=== PATIENT | female | born 1995 | race Hispanic/Latino ===

== ENCOUNTER 2016-11-21 05:53 | Inpatient (IN) | payer OTHER ==
[2016-11-21 06:17] VITALS: BMI 21.9
[2016-11-21] MEDS ORDERED: Sodium Chloride 0.9% 1,000 ML IV STA ×2 (06:17→08:52)
--- NOTE | 2016-11-21 06:29 | ED PDOC ---
HPI: Abdomen Time Seen by Provider: 11/21/16 06:09 Chief Complaint (Nursing): Abdominal Pain Chief Complaint (Provider): Abdominal discomfort History Per: Patient History/Exam Limitations: no limitations Onset/Duration Of Symptoms: Hrs Outside of [place] travel?: No Current Symptoms Are (Timing): Still Present Associated Symptoms: Vomiting, Diarrhea Additional Complaint(s): The patient is a 20yo female, presents to the ED for evaluation of nausea, vomiting, diarrhea since 4AM today. She reports 10 episodes of non-bloody, non- bilious vomiting and 4 episodes of watery, non-bloody diarrhea. She denies any abdominal pain, fever, chills, sick contacts, recent travels. She also denies any recent abdominal surgeries or recent antibiotics use. She offers no other medical complaints. Past Medical History Reviewed: Historical Data, Nursing Documentation, Vital Signs Vital Signs: Last Vital Signs Temp 97.7 F 11/21/16 06:20 Pulse 116 H 11/21/16 06:20 Resp 19 11/21/16 06:20 BP 144/67 11/21/16 06:20 Pulse Ox 100 11/21/16 06:41 - Medical History PMH: No Chronic Diseases - Surgical History Surgical History: No Surg Hx - Family History Family History: States: No Known Family Hx - Living Arrangements Living Arrangements: With Family - Social History Current smoker - smoking cessation education provided: No Ex-Smoker (has not smoked in the last 12 months): No Alcohol: None Drugs: Denies - Allergies Allergies/Adverse Reactions: Allergies Allergy/AdvReac Type Severity Reaction Status Date / Time Penicillins AdvReac VOMITING Verified 11/21/16 06:26 Review of Systems ROS Statement: Except As Marked, All Systems Reviewed And Found Negative Constitutional: Negative for: Fever, Chills Gastrointestinal: Positive for: Nausea, Vomiting, Diarrhea. Negative for: Abdominal Pain Physical Exam - Reviewed Nursing Documentation Reviewed: Yes Vital Signs Reviewed: Yes - Physical Exam Appears: Positive for: Non-toxic (patient actively retching upon examination) Head Exam: Positive for: ATRAUMATIC, NORMAL INSPECTION, NORMOCEPHALIC Skin: Positive for: Warm, Dry Eye Exam: Positive for: Normal appearance Neck: Positive for: Supple Cardiovascular/Chest: Positive for: Regular Rate, Rhythm Respiratory: Positive for: Normal Breath Sounds. Negative for: Respiratory Distress Gastrointestinal/Abdominal: Positive for: Soft. Negative for: Tenderness Neurologic/Psych: Positive for: Alert, Oriented. Negative for: Motor/Sensory Deficits - ECG O2 Sat by Pulse Oximetry: 100 (RA) Pulse Ox Interpretation: Normal Medical Decision Making Medical Decision Making: Time: 616 Impression: Gastroenteritis Plan: -- Labs -- Zofran 4g IV -- IV Fluids Reassess Time: 699 Patient to be signed out to Dr. Moreira pending labs and re-evaluation. Scribe Attestation: Documented by Prema Pinto acting as a scribe for Sarmad Galan MD. Provider Attestation: All medical record entries made by the Scribe were at my direction and personally dictated by me. I have reviewed the chart and agree that the record accurately reflects my personal performance of the history, physical exam, medical decision making, and the department course for this patient. I have also personally directed, reviewed, and agree with the discharge instructions and disposition. Disposition - Clinical Impression Clinical Impression: Gastroenteritis - Patient ED Disposition Is Patient to be Admitted: Transfer of Care - Disposition Disposition: Transfer of Care Disposition Time: 07:00 Condition: STABLE Forms: [employer] ([employer]) Patient Signed Over To: Jordyn Moreira Handoff Comments: pending labs, re-eval
--- NOTE | 2016-11-21 06:57 | ED PDOC ---
- Laboratory Results Result Diagrams: 11/22/16 05:10 11/22/16 05:10 - ECG O2 Sat by Pulse Oximetry: 100 (RA) - Progress Condition: Improving,but remains with symptoms Medical Decision Making Medical Decision Makin -Patient transferred to [place] by Dr. Galan. Pending labs and reevaluation 0920 -Patient feels better. Abdomen is nontender. 1100 -Patient feels better. Tolerated PO Disposition - Clinical Impression Clinical Impression: Gastroenteritis - POA Present On Arrival: None - Disposition Disposition: Hospitalized as Observation Patient Disposition Time: 11:48 Condition: STABLE ED OBSERVATION Date of observation admission: 11/21/16 Time of observation admission: 07:00 - Observation admission statement Patient is placed on observation because of need: for resolution of acute symptoms - Goals of Observation Goals of Observation: Resolution of symptoms - Progress Note Time:: 10:00 Observation Progress Note: Patient is awake,vitals are stable and symptoms are improved Progress Note: 11/21/16 11:09 Patient is awake, vitals are stable. Symptoms are improving. 11/21/16 12:26 Patient is awake, vitals are stable. Symptoms are improving.
[2016-11-21 07:04] LABS: BASO % 0.1 % (0.0-2.0); EOS % 0.2 % (0.0-4.0); HEMATOCRIT 48.1 % (34.0-47.0); LYMPH # 1.1 K/uL (1.0-4.3); LYMPH % 7.4 % (20.0-40.0); MEAN CELL VOLUME 89.2 fl (81.0-99.0); MEAN CORPUSCULAR HEMOGLOBIN 30.7 pg (27.0-31.0); MEAN CORPUSCULAR HGB CONC 34.4 g/dL (33.0-37.0); MONO # 0.3 K/uL (0.0-0.8); MONO % 2.2 % (0.0-10.0); NEUT # 13.8 K/uL (1.8-7.0); NEUT % 90.1 % (50.0-75.0); NRBC % 0.9 % (0.0-0.0); PLATELET COUNT 293 K/uL (130-400); RED CELL DISTRIBUTION WIDTH 13.1 % (11.5-14.5); WHITE BLOOD COUNT 15.3 K/uL (4.8-10.8)
[2016-11-21 07:20] LABS: ALB/GLOB RATIO 1.2 (1.0-2.1); ALKALINE PHOSPHATASE 109 U/L (38-126); ALT/SGPT 35 U/L (9-52); AST/SGOT 33 U/L (14-36); BILIRUBIN,TOTAL 0.8 mg/dl (0.2-1.3); BLOOD UREA NITROGEN 16 mg/dl (7-17); CALCIUM 10.2 mg/dL (8.4-10.2); CARBON DIOXIDE 23 mmol/L (22-30); CHLORIDE 102 mmol/L (98-107); GFR AFRICAN-AMERICAN > 60; GLUCOSE,RANDOM 115 mg/dL (65-105); LIPASE 62 U/L (23-300); POTASSIUM 4.3 MMOL/L (3.6-5.0); SODIUM 142 mmol/l (132-148); TOTAL PROTEIN 8.4 G/DL (6.3-8.2)
[2016-11-21 08:43] LABS: VENOUS BLOOD GAS BASE EXCESS 3.2 mmol/L (0.0-2.0); VENOUS BLOOD GAS PCO2 31 mmHg (40-60); VENOUS BLOOD PH 7.52 (7.32-7.43)
[2016-11-21 08:48] LABS: RBC URINE 5 /hpf (0-3); URINE BACTERIA RARE (<OCC); URINE BILIRUBIN NEGATIVE (NEGATIVE); URINE BLOOD LARGE (NEGATIVE); URINE COLOR YELLOW (YELLOW); URINE GLUCOSE (UA) NEG (Normal); URINE KETONE NEGATIVE (NEGATIVE); URINE LEUKOCYTE ESTERASE MOD Leu/uL (Negative); URINE PROTEIN 30 mg/dL (NEGATIVE); URINE UROBILINOGEN 0.2-1.0 mg/dL (0.2-1.0); WBC URINE 30 /hpf (0-5)
[2016-11-21 09:10] LABS: BASOPHIL 1 % (0-2); NEUTROPHIL 86 % (42-75); TOTAL CELLS COUNTED 100
[2016-11-21] MEDS ORDERED: Ciprofloxacin 400mg/200ml D5W 400 MG/200 ML BAG IVPB ONE ×2 (12:00→12:36)
[2016-11-21] MEDS ORDERED: Sodium Chloride 0.9% 1,000 ML IV SCH (14:15)
[2016-11-21] MEDS ORDERED: metroNIDAZOLE 500mg/100ml NS IVPB SCH (17:00)
[2016-11-21] MEDS: Sodium Chloride 0.9% 1,000 ML IV SCH (17:03)
[2016-11-21] MEDS ORDERED: Ciprofloxacin 400mg/200ml D5W 400 MG/200 ML BAG IVPB SCH (21:00)
--- NOTE | 2016-11-21 22:48 | CP.PCM.HP ---
History of Present Illness - History of Present Illness History of Present Illness: A 20 year old female came for nausea, vomiting, diarrhea since 4 AM this morning. She had 10 episodes of non-bilous vomiting She denied abdominal pain or fever or chills or dysuria. She has been healthy and was not taking any medicines at home. Present on Admission - Present on Admission Any Indicators Present on Admission: No History of DVT/PE: No History of Uncontrolled Diabetes: No Urinary Catheter: No Decubitus Ulcer Present: No Review of Systems - Cardiovascular Cardiovascular: absent: Chest Pain - Respiratory Respiratory: absent: Cough - Gastrointestinal Gastrointestinal: Nausea, Vomiting. absent: Abdominal Pain Past Patient History - Past Medical History & Family History Past Medical History?: Yes - Past Social History Smoking Status: Never Smoked - CARDIAC Hx Cardiac Disorders: No - PULMONARY Hx Respiratory Disorders: No - NEUROLOGICAL Hx Neurological Disorder: No - HEENT Hx HEENT Problems: No - RENAL Hx Chronic Kidney Disease: No - ENDOCRINE/METABOLIC Hx Endocrine Disorders: No - HEMATOLOGICAL/ONCOLOGICAL Hx Blood Disorders: No Hx AIDS: No Hx Human Immunodeficiency Virus (HIV): No - INTEGUMENTARY Hx Dermatological Problems: No - MUSCULOSKELETAL/RHEUMATOLOGICAL Hx Musculoskeletal Disorders: No Hx Falls: No - GASTROINTESTINAL Hx Gastrointestinal Disorders: Yes Other/Comment: 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 hospitalized once at age 1 for dehyration , vomiting - GENITOURINARY/GYNECOLOGICAL Hx Genitourinary Disorders: No - PSYCHIATRIC Hx Psychophysiologic Disorder: No Hx Substance Use: No - SURGICAL HISTORY Hx Surgeries: No - ANESTHESIA Hx Anesthesia: No Meds Home Medications: Home Medication List Medication Instructions Recorded Confirmed Type Ondansetron [Zofran Odt] 4 mg PO Q8H PRN #15 odt 11/21/16 Rx Allergies/Adverse Reactions: Allergies Allergy/AdvReac Type Severity Reaction Status Date / Time Penicillins AdvReac VOMITING Verified 11/21/16 06:26 Physical Exam - Constitutional Appears: Non-toxic, No Acute Distress - Neck Exam Neck exam: Positive for: Full Rom - Respiratory Exam Respiratory Exam: Clear to Auscultation Bilateral, NORMAL BREATHING PATTERN - Cardiovascular Exam Cardiovascular Exam: Tachycardia, REGULAR RHYTHM. absent: Systolic Murmur - GI/Abdominal Exam GI & Abdominal Exam: Normal Bowel Sounds, Soft. absent: Tenderness Results - Vital Signs Recent Vital Signs: Last Vital Signs Temp 102.8 F H 11/21/16 21:30 Pulse 101 H 10/05/17 21:30 Resp 22 11/21/16 21:30 BP 146/72 11/21/16 21:30 Pulse Ox 100 11/21/16 21:30 - Labs Result Diagrams: 11/22/16 05:10 11/22/16 05:10 Labs: Laboratory Results - last 24 hr 11/21/16 11/21/16 11/21/16 06:45 06:45 06:45 WBC 15.3 H RBC 5.39 H Hgb 16.6 H Hct 48.1 H MCV 89.2 MCH 30.7 MCHC 34.4 RDW 13.1 Plt Count 293 MPV 7.0 L Neut % (Auto) 90.1 H Lymph % (Auto) 7.4 L [place] % (Auto) 2.2 Eos % (Auto) 0.2 Baso % (Auto) 0.1 Neut # 13.8 H Lymph # 1.1 [place] # 0.3 Eos # 0.0 Baso # 0.0 Neutrophils % (Manual) 86 H Band Neutrophils % 3 H Lymphocytes % (Manual) 7 L Monocytes % (Manual) 3 Basophils % (Manual) 1 Toxic Granulation Present Platelet Estimate Normal RBC Morphology Normal pO2 VBG pH VBG pCO2 VBG HCO3 VBG Total CO2 VBG O2 Sat (Calc) VBG Base Excess VBG Potassium A-a O2 Difference Glucose Lactate FiO2 Blood Gas Comments Crit Value Called To Crit Value Called By Crit Value Read Back Blood Gas Notified Time Sodium 142 Potassium 4.3 Chloride 102 Carbon Dioxide 23 Anion Gap 21 H BUN 16 Creatinine 1.0 Est GFR ( Amer) > 60 Est GFR (Non-Af Amer) > 60 Random Glucose 115 H Lactic Acid 4.6 H* Calcium 10.2 Total Bilirubin 0.8 AST 33 ALT 35 Alkaline Phosphatase 109 Total Protein 8.4 H Albumin 4.7 Globulin 3.8 Albumin/Globulin Ratio 1.2 Lipase 62 Venous Blood Potassium Urine Color Urine Clarity Urine pH Ur Specific [place] Urine Protein Urine Glucose (UA) Urine Ketones Urine Blood Urine Nitrate Urine Bilirubin Urine Urobilinogen Ur Leukocyte Esterase Urine RBC (Auto) Urine Microscopic WBC Ur Squamous Epith Cells Urine Bacteria 11/21/16 11/21/16 07:48 08:27 WBC RBC Hgb Hct MCV MCH MCHC RDW Plt Count MPV Neut % (Auto) Lymph % (Auto) [place] % (Auto) Eos % (Auto) Baso % (Auto) Neut # Lymph # [place] # Eos # Baso # Neutrophils % (Manual) Band Neutrophils % Lymphocytes % (Manual) Monocytes % (Manual) Basophils % (Manual) Toxic Granulation Platelet Estimate RBC Morphology pO2 13 L VBG pH 7.52 H VBG pCO2 31 L VBG HCO3 24.9 VBG Total CO2 26.3 VBG O2 Sat (Calc) 19.9 L VBG Base Excess 3.2 H VBG Potassium 4.2 A-a O2 Difference 98.0 Glucose 99 Lactate 2.8 H FiO2 21.0 Blood Gas Comments Vbg Crit Value Called To Dr jose luis lobo Crit Value Called By 15 Crit Value Read Back Y Blood Gas Notified Time 824 Sodium 138.0 Potassium Chloride 105.0 Carbon Dioxide Anion Gap BUN Creatinine Est GFR ( Amer) Est GFR (Non-Af Amer) Random Glucose Lactic Acid Calcium Total Bilirubin AST ALT Alkaline Phosphatase Total Protein Albumin Globulin Albumin/Globulin Ratio Lipase Venous Blood Potassium 4.2 Urine Color Yellow Urine Clarity Cloudy Urine pH 6.0 Ur Specific [place] 1.023 Urine Protein 30 Urine Glucose (UA) Neg Urine Ketones Negative Urine Blood Large Urine Nitrate Negative Urine Bilirubin Negative Urine Urobilinogen 0.2-1.0 Ur Leukocyte Esterase Mod Urine RBC (Auto) 5 H Urine Microscopic WBC 30 H Ur Squamous Epith Cells 13 H Urine Bacteria Rare Assessment & Plan - Assessment and Plan (Free Text) Assessment: Acute gastroenteritis Plan: iv fluid stool culture study broad spectrum iv antibiotics - Date & Time Date: 11/21/16 Time: 22:49
[2016-11-22] MEDS: Ciprofloxacin 400mg/200ml D5W 400 MG/200 ML BAG IVPB SCH ×2 (00:01→12:13)
[2016-11-22 00:38] VITALS: RESP 20
[2016-11-22 05:56] LABS: ALB/GLOB RATIO 1.2 (1.0-2.1); ALKALINE PHOSPHATASE 58 U/L (38-126); ALT/SGPT 31 U/L (9-52); AST/SGOT 27 U/L (14-36); BILIRUBIN,TOTAL 0.8 mg/dl (0.2-1.3); BLOOD UREA NITROGEN 10 mg/dl (7-17); CALCIUM 8.7 mg/dL (8.4-10.2); CARBON DIOXIDE 20 mmol/L (22-30); CHLORIDE 107 mmol/L (98-107); GFR AFRICAN-AMERICAN > 60; GLUCOSE,RANDOM 92 mg/dL (65-105); POTASSIUM 3.7 MMOL/L (3.6-5.0); SODIUM 139 mmol/l (132-148); TOTAL PROTEIN 6.2 G/DL (6.3-8.2)
[2016-11-22 05:57] LABS: BASO % 0.1 % (0.0-2.0); HEMATOCRIT 37.9 % (34.0-47.0); LYMPH # 0.8 K/uL (1.0-4.3); LYMPH % 9.3 % (20.0-40.0); MEAN CORPUSCULAR HEMOGLOBIN 31.1 pg (27.0-31.0); MEAN CORPUSCULAR HGB CONC 34.6 g/dL (33.0-37.0); MEAN PLATELET VOLUME 7.3 fl (7.2-11.7); MONO # 0.4 K/uL (0.0-0.8); MONO % 4.6 % (0.0-10.0); NEUT # 7.8 K/uL (1.8-7.0); RED CELL DISTRIBUTION WIDTH 12.7 % (11.5-14.5)
[2016-11-22 06:26] LABS: THYROID STIMULATING HORMONE 0.61 mIU/ML (0.46-4.68)
--- NOTE | 2016-11-22 08:22 | CP.PCM.PN ---
Subjective - Date & Time of Evaluation Date of Evaluation: 11/22/16 Time of Evaluation: 08:20 - Subjective Subjective: much better for fever last night temperature went up to 103 no dysuria Objective - Vital Signs/Intake and Output Vital Signs (last 24 hours): Temp Pulse Resp BP Pulse Ox 98.8 F 88 20 119/69 98 11/22/16 05:00 11/22/16 05:00 11/22/16 05:00 11/22/16 05:00 11/22/16 05:00 - Medications Medications: Current Medications Acetaminophen (Tylenol 325mg Tab) 650 mg PO Q6 PRN PRN Reason: Pain, Mild (1-3) Last Admin: 11/21/16 15:40 Dose: 650 mg Acetaminophen (Tylenol 325mg Tab) 650 mg PO Q4 PRN PRN Reason: Fever >100.4 F Last Admin: 11/21/16 20:38 Dose: 650 mg Sodium Chloride (Sodium Chloride 0.9%) 1,000 mls @ 80 mls/hr IV .[id number] [facility] Last Admin: 11/21/16 12:35 Dose: 80 mls/hr Sodium Chloride (Sodium Chloride 0.9%) 1,000 mls @ 80 mls/hr IV .[id number] [facility] Stop: 11/22/16 15:09 Last Admin: 11/21/16 17:03 Dose: 80 mls/hr Ciprofloxacin (Cipro 400mg/200ml Dsw) 400 mg in 200 mls @ 200 mls/hr IVPB Q12@ 0000,1200 [facility] Last Admin: 11/22/16 00:01 Dose: 200 mls/hr Metronidazole (Flagyl) 500 mg PO Q8 [facility] Last Admin: 11/22/16 00:04 Dose: 500 mg Ondansetron HCl (Zofran Inj) 4 mg IVP Q6 PRN PRN Reason: Nausea/Vomiting Last Admin: 11/21/16 21:06 Dose: 4 mg Pantoprazole Sodium (Protonix Inj) 40 mg IVP DAILY [facility] - Labs Labs: 11/22/16 05:10 11/22/16 05:10 - Constitutional Appears: No Acute Distress - Respiratory Exam Respiratory Exam: Clear to Ausculation Bilateral, NORMAL BREATHING PATTERN - Cardiovascular Exam Cardiovascular Exam: REGULAR RHYTHM. absent: Murmur - GI/Abdominal Exam GI & Abdominal Exam: Normal Bowel Sounds Assessment and Plan - Assessment and Plan (Free Text) Assessment: a 20 year old female who came with diarrhea, N/V acute gastroenteritis Plan: check stool culture continue iv cipro, po flagyl ID and GI consult requested
[2016-11-22 08:53] VITALS: O2SAT 100
[2016-11-22] MEDS: Sodium Chloride 0.9% 1,000 ML IV SCH (09:43)
[2016-11-22] MEDS ORDERED: Iohexol 240 (50 ml) PO ONE (12:22)
--- NOTE | 2016-11-22 12:34 | CP.PCM.PN ---
Subjective - Date & Time of Evaluation Date of Evaluation: 11/22/16 Time of Evaluation: 12:15 - Subjective Subjective: no pain, diarrhea improving Objective - Vital Signs/Intake and Output Vital Signs (last 24 hours): Temp Pulse Resp BP Pulse Ox 98.7 F 80 20 119/76 100 11/22/16 11:59 11/22/16 11:59 11/22/16 11:59 11/22/16 11:59 11/22/16 11:59 - Medications Medications: Current Medications Acetaminophen (Tylenol 325mg Tab) 650 mg PO Q6 PRN PRN Reason: Pain, Mild (1-3) Last Admin: 11/21/16 15:40 Dose: 650 mg Acetaminophen (Tylenol 325mg Tab) 650 mg PO Q4 PRN PRN Reason: Fever >100.4 F Last Admin: 11/21/16 20:38 Dose: 650 mg Sodium Chloride (Sodium Chloride 0.9%) 1,000 mls @ 80 mls/hr IV .[id number] [facility] Last Admin: 11/21/16 12:35 Dose: 80 mls/hr Sodium Chloride (Sodium Chloride 0.9%) 1,000 mls @ 80 mls/hr IV .[id number] [facility] Stop: 11/22/16 15:09 Last Admin: 11/22/16 09:43 Dose: 80 mls/hr Ciprofloxacin (Cipro 400mg/200ml Dsw) 400 mg in 200 mls @ 200 mls/hr IVPB Q12@ 0000,1200 [facility] Last Admin: 11/22/16 12:13 Dose: 200 mls/hr Metronidazole (Flagyl) 500 mg PO Q8 [facility] Last Admin: 11/22/16 09:42 Dose: 500 mg Ondansetron HCl (Zofran Inj) 4 mg IVP Q6 PRN PRN Reason: Nausea/Vomiting Last Admin: 11/21/16 21:06 Dose: 4 mg Pantoprazole Sodium (Protonix Inj) 40 mg IVP DAILY [facility] Last Admin: 11/22/16 09:42 Dose: 40 mg - Labs Labs: 11/22/16 05:10 11/22/16 05:10 - Head Exam Head Exam: NORMAL INSPECTION, NORMOCEPHALIC - Eye Exam Eye Exam: Normal appearance - Neck Exam Neck Exam: Normal Inspection - Respiratory Exam Respiratory Exam: Clear to Ausculation Bilateral, NORMAL BREATHING PATTERN - Cardiovascular Exam Cardiovascular Exam: REGULAR RHYTHM - GI/Abdominal Exam GI & Abdominal Exam: Soft, Normal Bowel Sounds Assessment and Plan - Assessment and Plan (Free Text) Assessment: 20 yo female with gastroenteritis family history of IBD given recency of fever, consider CT abd/pelvis
--- NOTE | 2016-11-22 13:57 | CP.PCM.CON ---
History of Present Illness - History of Present Illness History of Present Illness: 20yo female, presents to the ED for evaluation of nausea, vomiting, diarrhea since 4AM today. She reports 10 episodes of non-bloody, non-bilious vomiting and 4 episodes of watery, non-bloody diarrhea. She denies any abdominal pain, fever, chills, sick contacts, recent travels. She also denies any recent abdominal surgeries or recent antibiotics use. She offers no other medical complaints. Review of Systems - Constitutional Constitutional: Chills, Fever, Malaise - EENT Eyes: absent: As Per HPI, Blind Spots, Blurred Vision, Change in Vision, Decreased Night Vision, Diplopia, Discharge, Dry Eye, Exophthalmos, Floaters, Irritation, Itchy Eyes, Loss of Peripheral Vision, Pain, Photophobia, Requires Corrective Lenses, Sees Flashes, Spots in Vision, Tunnel Vision, Other Visual Disturbances, Loss of Vision, Other Ears: absent: As Per HPI, Decreased Hearing, Ear Discharge, Ear Pain, Tinnitus, Abnormal Hearing, Disequilibrium, Dizziness, Other Nose/Mouth/Throat: absent: As Per HPI, Epistaxis, Nasal Congestion, Nasal Discharge, Nasal Obstruction, Nasal Trauma, Nose Pain, Post Nasal Drip, Sinus Pain, Sinus Pressure, Bleeding Gums, Change in Voice, Dental Pain, Dry Mouth, Dysphagia, Halitosis, Hoarsness, Lip Swelling, Mouth Lesions, Mouth Pain, Odynophagia, Sore Throat, Throat Swelling, Tongue Swelling, Facial Pain, Neck Pain, Neck Mass, Other - Breasts Breasts: absent: As Per HPI, Change in Shape, Mass, Pain, Nipple Discharge, Nipple Inversion, Skin Changes, Swelling, Other - Cardiovascular Cardiovascular: absent: As Per HPI, Acrocyanosis, Chest Pain, Chest Pain at Rest , Chest Pain with Activity, Claudication, Diaphoresis, Dyspnea, Dyspnea on Exertion, Edema, Irregular Heart Rhythm, Pain Radiating to Arm/Neck/Jaw, Leg Edema, Leg Ulcers, Lightheadedness, Orthopnea, Palpitations, Paroxysmal Nocturnal Dyspnea, Pedal Edema, Radiating Pain, Rapid Heart Rate, Slow Heart Rate, Syncope, Other - Respiratory Respiratory: absent: As Per HPI, Cough, Dyspnea, Hemoptysis, Dyspnea on Exertion , Wheezing, Snoring, Stridor, Pain on Inspiration, Chest Congestion, Excessive Mucous Production, Change in Mucous Color, Pain with Coughing, Other - Gastrointestinal Gastrointestinal: Diarrhea, Vomiting - Genitourinary Genitourinary: absent: As Per HPI, Change in Urinary Stream, Difficulty Urinating, Dysuria, Flank Pain, Hematuria, Pyuria, Nocturia, Urinary Incontinence, Urinary Frequency, Urinary Hesitance, Urinary Urgency, Voiding Freq/Small Amts, Freq UTI, Hx Renal/Bladder Calculi, Hx /Renal Surgery, Bladder Distension, Other - Reproductive: Female Reproductive:Female: absent: As Per HPI, Amenorrhea, Amenorrhea/ Control, Currently Menstual, Cycle <21 Days, Cycle >35 Days, Cycle Variable, Menses 1-7 Days, Menses >/= 8 Days, Menses Variable, Cycle > 4 Weeks Between, No Menses for 6 Months, Heavy Menses, Light Menses, Normal Menses, Spotting Between Cycles , S/P Hysterectomy, Menopausal, Post Menopausal, Premenarche, Abnormal Vaginal Bleeding, Dysmenorrhea, Dyspareunia, Genital Lesions, Genital Pruritis, Pelvic Pain, Prolapse Symptoms, Sexual Dysfunction, Vaginal Discharge, Vaginal Dryness , Vaginal Odor, Vaginal Pruritis, Other - Menstruation Menstruation: absent: As Per HPI, Amenorrhea, Amenorrhea/ Control, Currently Menstual, Cycle <21 Days, Cycle >35 Days, Cycle Variable, Menses 1-7 Days, Menses >/= 8 Days, Menses Variable, Cycle > 4 Weeks Between, No Menses for 6 Months, Heavy Menses, Light Menses, Normal Menses, Spotting Between Cycles , S/P Hysterectomy, Menopausal, Post Menopausal, Premenarche, Abnormal Vaginal Bleeding, Dysmenorrhea, Other - Musculoskeletal Musculoskeletal: absent: As Per HPI, Abnormal Gait, Arthralgias, Atrophy, Back Pain, Deformity, Joint Swelling, Limited Range of Motion, Loss of Height, Muscle Cramps, Muscle Weakness, Myalgias, Neck Pain, Numbness, Radiating Pain into Limb, Stiffness, Tingling, Other - Integumentary Integumentary: absent: As Per HPI, Acne, Alopecia, Bleeding Lesions, Change in Hair, Change in Nails, Change in Pigmentation, Changing Lesions, Dry Skin, Erythema, Furuncle, Hirsutism, Lesions, New Lesions, Non-Healing Lesions, Photosensitivity, Pruritus, Rash, Skin Pain, Skin Ulcer, Sores, Striae, Swelling , Unusual Bruising, Wounds, Jaundice, Other - Neurological Neurological: absent: As Per HPI, Abnormal Gait, Abnormal Hearing, Abnormal Movements, Abnormal Speech, Behavioral Changes, Burning Sensations, Confusion, Convulsions, Disequilibrium, Dizziness, Numbness, Focal Weakness, Frequent Falls , Headaches, Lack of Coordination, Loss of Vision, Memory Loss, Paresthesias, Radicular Pain, Restless Legs, Sensory Deficit, Syncope, Tingling, Tremor, Vertigo, Weakness, Other Visual Disturbances, Other - Psychiatric Psychiatric: absent: As Per HPI, Abnormal Sleep Pattern, Anhedonia, Anxiety, Auditory Hallucinations, Behavioral Changes, Change in Appetite, Change in Libido, Confusion, Depression, Difficulty Concentrating, Hallucinations, Homicidal Ideation, Hopelessness, Irritability, Memory Loss, Mood Swings, Panic Attacks, Paranoia, Suicidal Ideation, Visual Hallucinations, Tactile Hallucinations, Other - Endocrine Endocrine: absent: As Per HPI, Change in Body Appearance, Change in Libido, Cold Intolorance, Deepening of Voice, Excessive Sweating, Fatigue, Flushing, Heat Intolorance, Increase in Ring/Shoe/Hat Size, Palpitations, Polydipsia, Polyphagia, Polyuria, Other - Hematologic/Lymphatic Hematologic: absent: As Per HPI, Easy Bleeding, Easy Bruising, Lymphadenopathy, Other Past Patient History - Past Medical History & Family History Past Medical History?: Yes - Past Social History Smoking Status: Never Smoked - CARDIAC Hx Cardiac Disorders: No - PULMONARY Hx Respiratory Disorders: No - NEUROLOGICAL Hx Neurological Disorder: No - HEENT Hx HEENT Problems: No - RENAL Hx Chronic Kidney Disease: No - ENDOCRINE/METABOLIC Hx Endocrine Disorders: No - HEMATOLOGICAL/ONCOLOGICAL Hx Blood Disorders: No Hx AIDS: No Hx Human Immunodeficiency Virus (HIV): No - INTEGUMENTARY Hx Dermatological Problems: No - MUSCULOSKELETAL/RHEUMATOLOGICAL Hx Musculoskeletal Disorders: No Hx Falls: No - GASTROINTESTINAL Hx Gastrointestinal Disorders: Yes Other/Comment: 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 hospitalized once at age 1 for dehyration , vomiting - GENITOURINARY/GYNECOLOGICAL Hx Genitourinary Disorders: No - PSYCHIATRIC Hx Psychophysiologic Disorder: No Hx Substance Use: No - SURGICAL HISTORY Hx Surgeries: No - ANESTHESIA Hx Anesthesia: No Meds Home Medications: Home Medication List Medication Instructions Recorded Confirmed Type Ondansetron [Zofran Odt] 4 mg PO Q8H PRN #15 odt 11/21/16 Rx Allergies/Adverse Reactions: Allergies Allergy/AdvReac Type Severity Reaction Status Date / Time Penicillins AdvReac VOMITING Verified 11/21/16 06:26 - Medications Medications: Current Medications Acetaminophen (Tylenol 325mg Tab) 650 mg PO Q6 PRN PRN Reason: Pain, Mild (1-3) Last Admin: 11/21/16 15:40 Dose: 650 mg Acetaminophen (Tylenol 325mg Tab) 650 mg PO Q4 PRN PRN Reason: Fever >100.4 F Last Admin: 11/21/16 20:38 Dose: 650 mg Sodium Chloride (Sodium Chloride 0.9%) 1,000 mls @ 80 mls/hr IV .[id number] [facility] Last Admin: 11/21/16 12:35 Dose: 80 mls/hr Sodium Chloride (Sodium Chloride 0.9%) 1,000 mls @ 80 mls/hr IV .[id number] [facility] Stop: 11/22/16 15:09 Last Admin: 11/22/16 09:43 Dose: 80 mls/hr Ciprofloxacin (Cipro 400mg/200ml Dsw) 400 mg in 200 mls @ 200 mls/hr IVPB Q12@ 0000,1200 [facility] Last Admin: 11/22/16 12:13 Dose: 200 mls/hr Metronidazole (Flagyl) 500 mg PO Q8 [facility] Last Admin: 11/22/16 09:42 Dose: 500 mg Ondansetron HCl (Zofran Inj) 4 mg IVP Q6 PRN PRN Reason: Nausea/Vomiting Last Admin: 11/21/16 21:06 Dose: 4 mg Pantoprazole Sodium (Protonix Inj) 40 mg IVP DAILY [facility] Last Admin: 11/22/16 09:42 Dose: 40 mg Physical Exam - Constitutional Appears: Non-toxic, No Acute Distress - Head Exam Head Exam: ATRAUMATIC, NORMAL INSPECTION, NORMOCEPHALIC - Eye Exam Eye Exam: EOMI, PERRL. absent: Scleral icterus - ENT Exam ENT Exam: Mucous Membranes Dry, Normal External Ear Exam - Neck Exam Neck exam: Negative for: Lymphadenopathy, Thyromegaly - Respiratory Exam Respiratory Exam: Decreased Breath Sounds, Clear to Auscultation Bilateral - Cardiovascular Exam Cardiovascular Exam: REGULAR RHYTHM, +S1, +S2 - GI/Abdominal Exam GI & Abdominal Exam: Diminished Bowel Sounds, Distended, Soft. absent: Tenderness - Rectal Exam Rectal Exam: Deferred - Exam Exam: NORMAL INSPECTION - Extremities Exam Extremities exam: Positive for: pedal pulses present. Negative for: calf tenderness, pedal edema, tenderness - Back Exam Back exam: absent: CVA tenderness (L), CVA tenderness (R) - Neurological Exam Neurological exam: Alert, CN II-XII Intact, Oriented x3, Reflexes Normal - Psychiatric Exam Psychiatric exam: Normal Mood - Skin Skin Exam: Dry, Intact Results - Vital Signs Recent Vital Signs: Last Vital Signs Temp 98.7 F 11/22/16 11:59 Pulse 80 11/22/16 11:59 Resp 20 11/22/16 11:59 BP 119/76 11/22/16 11:59 Pulse Ox 100 11/22/16 11:59 - Labs Result Diagrams: 11/22/16 05:10 11/22/16 05:10 Labs: Laboratory Results - last 24 hr 11/22/16 11/22/16 11/22/16 05:10 05:10 08:51 WBC 9.0 RBC 4.21 Hgb 13.1 D Hct 37.9 MCV 90.0 MCH 31.1 H MCHC 34.6 RDW 12.7 Plt Count 178 D MPV 7.3 Neut % (Auto) 86.0 H Lymph % (Auto) 9.3 L [place] % (Auto) 4.6 Eos % (Auto) 0.0 Baso % (Auto) 0.1 Neut # 7.8 H Lymph # 0.8 L [place] # 0.4 Eos # 0.0 Baso # 0.0 Sodium 139 Potassium 3.7 Chloride 107 Carbon Dioxide 20 L Anion Gap 16 BUN 10 Creatinine 1.0 Est GFR ( Amer) > 60 Est GFR (Non-Af Amer) > 60 Random Glucose 92 Calcium 8.7 Total Bilirubin 0.8 AST 27 ALT 31 Alkaline Phosphatase 58 Total Protein 6.2 L Albumin 3.4 L D Globulin 2.9 Albumin/Globulin Ratio 1.2 TSH 3rd Generation 0.61 C. difficile Ag & Toxin Negative Assessment & Plan (1) Gastroenteritis Status: Acute - Assessment and Plan (Free Text) Assessment: gastroenteritis- possibly viral, doubt enteroinvasive await cultures if fever persists/ recurs then CT abd
[2016-11-22 16:15] VITALS: BP 123/80; PULSE 66; TEMP 99.2
--- NOTE | 2016-11-22 23:29 | CON ---
DATE OF SERVICE: 11/21/2016 REFERRING PHYSICIAN: Dr. Angel. REASON FOR CONSULTATION: Nausea, vomiting, diarrhea. HISTORY OF PRESENT ILLNESS: This is a very pleasant 20-year-old female who said she had 1 episode that began earlier this morning with nausea, vomiting, and some profuse diarrhea after eating some foods. No one else got sick. She feels better at this point after vomiting. Subjective fever. No pain. Some discomfort. No recent travel or sick contacts. Currently lying in bed comfortably, in no apparent distress. PAST MEDICAL HISTORY: As above. PAST SURGICAL HISTORY: As above. MEDICATIONS: Have been reviewed. REVIEW OF SYSTEMS: All systems have been reviewed and negative apart from the HPI. PHYSICAL EXAMINATION: VITAL SIGNS: In the hospital, grossly unremarkable. GENERAL: A pleasant young female, lying in the bed comfortable, in no apparent distress. HEENT: Head is normocephalic and atraumatic. Eyes, pupils are equal, round, and reactive to light bilaterally. No conjunctival pallor or icterus. NECK: Supple. Normal range of motion. No lymphadenopathy appreciated. LUNGS: Coarse breath sounds bilaterally. HEART: S1 and S2. Regular rate and rhythm. No murmurs appreciated. ABDOMEN: Soft, nontender. Bowel sounds present. No rebound. No guarding. RECTAL: Deferred. EXTREMITIES: Pulses felt bilaterally. SKIN: Warm, dry, and intact. NEUROLOGIC: A and O x3. LABORATORY DATA: Labs have been reviewed. WBC is 15.3, hemoglobin 16.6, hematocrit 48.1, neutrophils 86%. LFTs are grossly unremarkable. ASSESSMENT AND PLAN: This is a 20-year-old female with what appears to be gastroenteritis. I would, at this point, advance diet as tolerated, Zofran for the nausea, H2 tessie for the abdominal discomfort. The patient is noted to have no clinical symptoms of being septic. If the patient tolerates diet, can go home. Given the family history of the grandmother who may have possible ulcerative colitis, this may be an acute presentation of disease. We will definitely recommend, at some point, electively colonoscopy and further workup. Right now, if tolerates diet and clinically improving, can go home with followup as an outpatient. Thank you for consult. Tomas Logan MD/ PhD cc: Dr. Angel
--- NOTE | 2016-11-24 08:56 | CP.PCM.DIS ---
Provider - Provider Date of Admission: 11/21/16 12:10 Attending physician: Ap Angel MD Primary care physician: 20 year old female came with painless diarrhea, nausea, vomiting no abdominal tenderness Time Spent in preparation of Discharge (in minutes): 30 Hospital Course - Lab Results Lab Results: Micro Results 11/21/16 20:55 Blood Blood Culture - Preliminary NO GROWTH AFTER 48 HOURS 11/21/16 20:55 Blood Blood Culture - Preliminary NO GROWTH AFTER 48 HOURS 11/21/16 08:45 Stool Stool Culture - Preliminary LACTOSE [employer], SUB SELENITE BROTH. Most Recent Lab Values WBC 9.0 K/uL (4.8-10.8) 11/22/16 05:10 RBC 4.21 Mil/uL (3.80-5.20) 11/22/16 05:10 Hgb 13.1 g/dL (12.0-16.0) D 11/22/16 05:10 Hct 37.9 % (34.0-47.0) 11/22/16 05:10 MCV 90.0 fl (81.0-99.0) 11/22/16 05:10 MCH 31.1 pg (27.0-31.0) H 11/22/16 05:10 MCHC 34.6 g/dL (33.0-37.0) 11/22/16 05:10 RDW 12.7 % (11.5-14.5) 11/22/16 05:10 Plt Count 178 K/uL (130-400) D 11/22/16 05:10 MPV 7.3 fl (7.2-11.7) 11/22/16 05:10 Neut % (Auto) 86.0 % (50.0-75.0) H 11/22/16 05:10 Lymph % (Auto) 9.3 % (20.0-40.0) L 11/22/16 05:10 [place] % (Auto) 4.6 % (0.0-10.0) 11/22/16 05:10 Eos % (Auto) 0.0 % (0.0-4.0) 11/22/16 05:10 Baso % (Auto) 0.1 % (0.0-2.0) 11/22/16 05:10 Neut # 7.8 K/uL (1.8-7.0) H 11/22/16 05:10 Lymph # 0.8 K/uL (1.0-4.3) L 11/22/16 05:10 [place] # 0.4 K/uL (0.0-0.8) 11/22/16 05:10 Eos # 0.0 K/uL (0.0-0.7) 11/22/16 05:10 Baso # 0.0 K/uL (0.0-0.2) 11/22/16 05:10 Neutrophils % (Manual) 86 % (42-75) H 11/21/16 06:45 Band Neutrophils % 3 % (0-2) H 11/21/16 06:45 Lymphocytes % (Manual) 7 % (20-50) L 11/21/16 06:45 Monocytes % (Manual) 3 % (0-10) 11/21/16 06:45 Basophils % (Manual) 1 % (0-2) 11/21/16 06:45 Toxic Granulation Present 11/21/16 06:45 Platelet Estimate Normal (NORMAL) 11/21/16 06:45 RBC Morphology Normal (NORMAL) 11/21/16 06:45 pO2 13 mm/Hg (30-55) L 11/21/16 08:27 VBG pH 7.52 (7.32-7.43) H 11/21/16 08:27 VBG pCO2 31 mmHg (40-60) L 11/21/16 08:27 VBG HCO3 24.9 mmol/L 11/21/16 08:27 VBG Total CO2 26.3 mmol/L (22-28) 11/21/16 08:27 VBG O2 Sat (Calc) 19.9 % (40-65) L 11/21/16 08:27 VBG Base Excess 3.2 mmol/L (0.0-2.0) H 11/21/16 08:27 VBG Potassium 4.2 mmol/L (3.6-5.2) 11/21/16 08:27 A-a O2 Difference 98.0 mm/Hg 11/21/16 08:27 Sodium 138.0 mmol/L (132-148) 11/21/16 08:27 Chloride 105.0 mmol/L (98-107) 11/21/16 08:27 Glucose 99 mg/dL (65-105) 11/21/16 08:27 Lactate 2.8 mmol/L (0.7-2.1) H 11/21/16 08:27 FiO2 21.0 % 11/21/16 08:27 Blood Gas Comments Vbg 11/21/16 08:27 Crit Value Called To Dr jose luis lobo 11/21/16 08:27 Crit Value Called By 15 11/21/16 08:27 Crit Value Read Back Y 11/21/16 08:27 Blood Gas Notified Time 824 11/21/16 08:27 Sodium 139 mmol/l (132-148) 11/22/16 05:10 Potassium 3.7 MMOL/L (3.6-5.0) 11/22/16 05:10 Chloride 107 mmol/L (98-107) 11/22/16 05:10 Carbon Dioxide 20 mmol/L (22-30) L 11/22/16 05:10 Anion Gap 16 (10-20) 11/22/16 05:10 BUN 10 mg/dl (7-17) 11/22/16 05:10 Creatinine 1.0 mg/dL (0.7-1.2) 11/22/16 05:10 Est GFR ( Amer) > 60 11/22/16 05:10 Est GFR (Non-Af Amer) > 60 11/22/16 05:10 Random Glucose 92 mg/dL (65-105) 11/22/16 05:10 Lactic Acid 0.8 MMOL/L (0.7-2.1) 11/22/16 14:44 Calcium 8.7 mg/dL (8.4-10.2) 11/22/16 05:10 Total Bilirubin 0.8 mg/dl (0.2-1.3) 11/22/16 05:10 AST 27 U/L (14-36) 11/22/16 05:10 ALT 31 U/L (9-52) 11/22/16 05:10 Alkaline Phosphatase 58 U/L (38-126) 11/22/16 05:10 Total Protein 6.2 G/DL (6.3-8.2) L 11/22/16 05:10 Albumin 3.4 g/dL (3.5-5.0) L D 11/22/16 05:10 Globulin 2.9 gm/dL (2.2-3.9) 11/22/16 05:10 Albumin/Globulin Ratio 1.2 (1.0-2.1) 11/22/16 05:10 Lipase 62 U/L (23-300) 11/21/16 06:45 TSH 3rd Generation 0.61 mIU/ML (0.46-4.68) 11/22/16 05:10 Venous Blood Potassium 4.2 mmol/L (3.6-5.2) 11/21/16 08:27 Urine Color Yellow (YELLOW) 11/21/16 07:48 Urine Clarity Cloudy (Clear) 11/21/16 07:48 Urine pH 6.0 (5.0-8.0) 11/21/16 07:48 Ur Specific [place] 1.023 (1.003-1.030) 11/21/16 07:48 Urine Protein 30 mg/dL (NEGATIVE) 11/21/16 07:48 Urine Glucose (UA) Neg mg/dL (Normal) 11/21/16 07:48 Urine Ketones Negative mg/dL (NEGATIVE) 11/21/16 07:48 Urine Blood Large (NEGATIVE) 11/21/16 07:48 Urine Nitrate Negative (NEGATIVE) 11/21/16 07:48 Urine Bilirubin Negative (NEGATIVE) 11/21/16 07:48 Urine Urobilinogen 0.2-1.0 mg/dL (0.2-1.0) 11/21/16 07:48 Ur Leukocyte Esterase Mod [place]/uL (Negative) 11/21/16 07:48 Urine RBC (Auto) 5 /hpf (0-3) H 11/21/16 07:48 Urine Microscopic WBC 30 /hpf (0-5) H 11/21/16 07:48 Ur Squamous Epith Cells 13 /hpf (0-5) H 11/21/16 07:48 Urine Bacteria Rare (<OCC) 11/21/16 07:48 C. difficile Ag & Toxin Negative (NEGATIVE) 11/22/16 08:51 Influenza Typ A,B (EIA) Negative for flu a/b (NEGATIVE) 11/22/16 14:25 - Hospital Course Hospital Course: fever broke out during the first night of admission. blood culture was sent IV hydration, antiemetics GI and ID consult patient and her father wanted to be discharged on 11/22/16. Discharged with po cipro, po flagyl Discharge Exam - Head Exam Head Exam: ATRAUMATIC, NORMAL INSPECTION, NORMOCEPHALIC Discharge Plan - Discharge Medications Prescriptions: Ondansetron [Zofran Odt] 4 mg PO Q8H PRN #15 odt PRN Reason: Nausea/Vomiting - Follow Up Plan Condition: STABLE Disposition: HOME/ ROUTINE Instructions: Gastroenteritis (DC) Additional Instructions: FOLLOW-UP WITH YOUR Dr Angel [id number] [id number] [phone] on Friday Any fever or pain go to ER prescriptions called in to pharmacy cipro and flagyl by Dr Angel
== END 2016-11-22 19:00 | disposition home or self-care (01) | DRG 392 ==
LOC: H.ER 05:53 → H.EROBSV 07:00 → H.ERHOLD 11:51 → OBSVTOIN 12:10 → H.PEDS 14:14
PROVIDERS: ADMIT Internal Medicine; ATTEND Internal Medicine
DX: A08.4 Viral intestinal infection, unspecified (principal); Z88.0 Allergy status to penicillin